=== PATIENT | female | born 1965 | race Caucasian/White ===

== ENCOUNTER 2017-02-22 06:13 | Emergency (ER) | payer OTHER ==
[2017-02-22 06:22] VITALS: PULSE 55; RESP 18
--- NOTE | 2017-02-22 06:47 | XR ---
EXAM: XR Left Ankle Complete, 3 or More Views CLINICAL HISTORY: Reason: Pain TECHNIQUE: Frontal, lateral and oblique views of the left ankle. COMPARISON: No relevant prior studies available. FINDINGS: No fracture or subluxation. Ankle mortise is intact. Soft tissues are unremarkable. Focal calcification seen at the Achilles tendon insertion on the posterior calcaneus. IMPRESSION: No fracture or subluxation.
--- NOTE | 2017-02-22 06:49 | XR ---
EXAM: XR Left Foot Complete, 3 or More Views CLINICAL HISTORY: Reason: Pain TECHNIQUE: Frontal, lateral and oblique views of the left foot. COMPARISON: No relevant prior studies available. FINDINGS: Bones/joints: Unremarkable. No acute fracture. No dislocation. Soft tissues: Enthesophyte at the Achilles tendon insertion on the posterior calcaneus. No radiopaque foreign body. IMPRESSION: No evidence of fracture.
--- NOTE | 2017-02-22 08:01 | ED ---
General Adult HPI - General Chief complaint: Extremity Injury, Lower Stated complaint: Fall/Ankle and foot injury Time Seen by Provider: 02/22/17 07:19 Source: patient, family, RN notes reviewed, old records reviewed Mode of arrival: ambulatory Limitations: no limitations - History of Present Illness Initial comments: This is a 51-year-old female to the ER with left ankle injury. Left ankle pain. Patient had a trip and fall going downstairs about 4 stairs. She denies any other pain or any other injury.. No blood thinners patient has not had. She has no headache chest pain shortness of breath or abdominal pain, patient states falls. Mechanical in nature, she does complain of left ankle pain and left foot pain. - Related Data Allergies Allergy/AdvReac Type Severity Reaction Status Date / Time codeine Allergy Confusion Verified 02/22/17 06:22 Review of Systems ROS Statement: Those systems with pertinent positive or pertinent negative responses have been documented in the HPI. ROS Other: All systems not noted in ROS Statement are negative. Past Medical History Past Medical History: Eye Disorder History of Any Multi-Drug Resistant Organisms: None Reported Additional Past Surgical History / Comment(s): Left shoulder surgery 2011, compund fracture in left elbow, dental surgery, Past Psychological History: No Psychological Hx Reported Smoking Status: Current every day smoker Past Alcohol Use History: Occasional Past Drug Use History: None Reported General Exam - General Exam Comments Initial Comments: Tenderness to left ankle medially full range of motion Limitations: no limitations General appearance: alert, in no apparent distress Head exam: Present: atraumatic, normocephalic, normal inspection Eye exam: Present: normal appearance, PERRL, EOMI. Absent: scleral icterus, conjunctival injection, periorbital swelling ENT exam: Present: normal exam, mucous membranes moist Neck exam: Present: normal inspection. Absent: tenderness, meningismus, lymphadenopathy Respiratory exam: Present: normal lung sounds bilaterally. Absent: respiratory distress, wheezes, rales, rhonchi, stridor Cardiovascular Exam: Present: regular rate, normal rhythm, normal heart sounds. Absent: systolic murmur, diastolic murmur, rubs, gallop, clicks GI/Abdominal exam: Present: soft, normal bowel sounds. Absent: distended, tenderness, guarding, rebound, rigid Extremities exam: Present: normal inspection, full ROM, normal capillary refill. Absent: tenderness, pedal edema, joint swelling, calf tenderness Back exam: Present: normal inspection Neurological exam: Present: alert, oriented X3, CN II-XII intact Psychiatric exam: Present: normal affect, normal mood Skin exam: Present: warm, dry, intact, normal color. Absent: rash Course Vital Signs 02/22/17 02/22/17 06:17 08:22 Temperature 98.7 F 97.9 F Pulse Rate 55 L 55 L Respiratory 18 18 Rate Blood Pressure 124/69 127/62 O2 Sat by Pulse 99 96 Oximetry Medical Decision Making - Medical Decision Making 51 female to ER for evaluation regarding fall down 4 stairs. Patient complains of left foot and ankle pain. X-rays are negative patient's able to ambulate with mild pain, okay for discharge - Radiology Data Radiology results: report reviewed (Ankle x-ray for x-ray negative for traumatic injury), image reviewed Disposition Clinical Impression: Left ankle sprain Disposition: HOME SELF-CARE Condition: Good Instructions: Ankle Sprain (ED) Referrals: Gilmer Baez MD [Primary Care Provider] - 1-2 days
[2017-02-22 08:24] VITALS: BP 127/62; TEMP 97.9
--- NOTE | 2017-02-24 03:25 | CDI ---
Documentation Clarification OP Dear Cuco CHAVEZ, DO Please do addendum to ED report for HPI , Physical exam and MDM. Thank you, Shila Dove Quality Assurance Nurse If you have any question, Please contact technical delivery manager at [phone] [facility]
== END 2017-02-22 08:21 | disposition home or self-care (01) ==
LOC: EC 06:13
DX: S93.402A Sprain of unspecified ligament of left ankle, initial encounter (principal); Z88.5 Allergy status to narcotic agent; W10.9XXA Fall (on) (from) unspecified stairs and steps, initial encounter; Y92.009 Unspecified place in unspecified non-institutional (private) residence as the place of occurrence of the external cause
CPT/HCPCS: 99283

== ENCOUNTER → 2017-06-23 | Outpatient (CLI) | payer OTHER ==
[2017-06-23 07:20] LABS: Basophils % (A) 1 %; Eosinophils # (A) 0.1 k/uL (0-0.7); Eosinophils % (A) 2 %; HCT 41.8 % (34.0-46.0); HGB 14.2 gm/dL (11.4-16.0); Lymphocytes # (A) 2.4 k/uL (1.0-4.8); Lymphocytes % (A) 44 %; MCH 30.2 pg (25.0-35.0); MCV 88.8 fL (80.0-100.0); Mean Platelet Volume 7.8; Monocytes # (A) 0.5 k/uL (0-1.0); Monocytes % (A) 8 %; Neutrophils # (A) 2.3 k/uL (1.3-7.7); Neutrophils % (A) 44 %; Platelet Count 208 k/uL (150-450); RBC 4.71 m/uL (3.80-5.40); RDW 13.6 % (11.5-15.5); WBC 5.4 k/uL (3.8-10.6)
[2017-06-23 07:46] LABS: ALT 25 U/L (9-52); AST 29 U/L (14-36); Albumin 4.7 g/dL (3.5-5.0); Alkaline Phosphatase 85 U/L (38-126); Anion Gap 12 mmol/L; Blood Urea Nitrogen 19 mg/dL (7-17); Carbon Dioxide 25 mmol/L (22-30); Chloride 105 mmol/L (98-107); Cholesterol 243 mg/dL (<200); Glucose 91 mg/dL (74-99); HDL Cholesterol 60 mg/dL (40-60); LDL Cholesterol,Calculated 165 mg/dL (0-99); Potassium 5.2 mmol/L (3.5-5.1); Sodium 142 mmol/L (137-145); Total Bilirubin 1.1 mg/dL (0.2-1.3); Total Protein 7.3 g/dL (6.3-8.2); Triglycerides 92 mg/dL (<150)
== END ==
LOC: LABWHC1 06:37
PROVIDERS: ATTEND Family Medicine
DX: Z00.00 Encounter for general adult medical examination without abnormal findings (principal)
CPT/HCPCS: 36415; 80053; 80061; 82306; 84443; 85025

== ENCOUNTER → 2017-11-17 | Outpatient (CLI) | payer OTHER ==
--- NOTE | 2017-11-17 09:36 | MM ---
Reason for exam: additional evaluation requested from abnormal screening. Last mammogram was performed less than 1 month ago. History: Patient is postmenopausal. Family history of premenopausal breast cancer in aunt at age 43. Took hormonal contraceptives for 9 years beginning at age 20. Physical Findings: Nurse Summary: 1cm nodule in the right breast at 12 o'clock (nurse yessica). MG 3D Work Up W/Cad RT Spot compression CC, spot compression MLO, and LM view(s) were taken of the right breast. Prior study comparison: November 06, 2017, bilateral MG 3d screening mammo w/cad. July 31, 2008, bilateral digital screening mammogram. There are scattered fibroglandular densities. There is no discrete abnormality. These results were verbally communicated with the patient and result sheet given to the patient on 11/17/17. ASSESSMENT: Incomplete: need additional imaging evaluation, BI-RAD 0 RECOMMENDATION: Ultrasound of the right breast.
--- NOTE | 2017-11-17 09:37 | USB ---
Reason for exam: additional evaluation requested from abnormal screening. History: Patient is postmenopausal. Family history of premenopausal breast cancer in aunt at age 43. Took hormonal contraceptives for 9 years beginning at age 20. US Breast Workup Limited RT Technologist: Ivelisse Boland RT (R)(M) Right limited breast ultrasound including focal area of concern, retroareolar and axilla demonstrates duct ectasia at posterior nipple. These results were verbally communicated with the patient and result sheet given to the patient on 11/17/17. ASSESSMENT: Negative, BI-RAD 1 RECOMMENDATION: Return to routine screening mammogram schedule for both breasts.
== END ==
LOC: RADMAMWWP 07:37
PROVIDERS: ATTEND Family Medicine
DX: R92.8 Other abnormal and inconclusive findings on diagnostic imaging of breast (principal)
CPT/HCPCS: 77061; 77065

== ENCOUNTER → 2017-11-23 | Outpatient (CLI) | payer OTHER ==
--- NOTE | 2017-11-23 18:24 | XR ---
EXAMINATION TYPE: XR shoulder complete RT DATE OF EXAM: 11/23/2017 COMPARISON: NONE HISTORY: Fell from a ladder. Shoulder pain TECHNIQUE: 3 views FINDINGS: I see no fracture nor dislocation. Glenohumeral joint is anatomic. Soft tissues appear norm al. There are no pathologic calcifications. IMPRESSION: Normal right shoulder.
--- NOTE | 2017-11-23 18:25 | XR ---
EXAMINATION TYPE: XR scapula RT DATE OF EXAM: 11/23/2017 COMPARISON: NONE HISTORY: Fall. Pain. TECHNIQUE: 2 views FINDINGS: There is no fracture nor dislocation. Scapula appears intact. Soft tissues appear normal. IMPRESSION: Normal right scapula.
--- NOTE | 2017-11-23 18:26 | XR ---
EXAMINATION TYPE: XR chest 2V DATE OF EXAM: 11/23/2017 COMPARISON: NONE HISTORY: Fall. Pain. TECHNIQUE: Frontal and lateral views of the chest are obtained. FINDINGS: Heart and mediastinum are normal. Lungs are clear. Diaphragm is normal. Bony thorax appear s normal. IMPRESSION: Normal chest.
--- NOTE | 2017-11-23 18:27 | XR ---
EXAMINATION TYPE: XR ribs LT DATE OF EXAM: 11/23/2017 COMPARISON: NONE HISTORY: Fall. Pain. TECHNIQUE: 4 views FINDINGS: I see no pleural effusion or pneumothorax. Left lung is clear of infiltrate. Left ribs appe ar intact. IMPRESSION: No rib fracture seen.
== END | disposition home or self-care (01) ==
LOC: RADXRMAIN 17:37
PROVIDERS: ATTEND Emergency Medicine
DX: M25.511 Pain in right shoulder (principal); R52 Pain, unspecified
CPT/HCPCS: 71046

== ENCOUNTER 2018-02-24 21:09 | Emergency (ER) | payer OTHER ==
[2018-02-24 22:01] VITALS: BP 131/80; PULSE 72; RESP 16; TEMP 97.9
--- NOTE | 2018-02-24 22:25 | ED ---
Lower Extremity Injury HPI - General Chief Complaint: Extremity Injury, Lower Stated Complaint: rt dislocated toe Time Seen by Provider: 02/24/18 22:04 Source: patient, RN notes reviewed Mode of arrival: ambulatory Limitations: no limitations - History of Present Illness Initial Comments: 52-year-old female presents emergency Department chief complaint of right foot fifth toe injury. Patient reportedly stubbed her toe on electrical plug. Patient states that is angulated and believes it's dislocated. Patient had no prior injury to that toe. - Related Data Allergies Allergy/AdvReac Type Severity Reaction Status Date / Time codeine Allergy Confusion Verified 02/22/17 06:22 Review of Systems ROS Statement: Those systems with pertinent positive or pertinent negative responses have been documented in the HPI. ROS Other: All systems not noted in ROS Statement are negative. Past Medical History Past Medical History: Eye Disorder History of Any Multi-Drug Resistant Organisms: None Reported Additional Past Surgical History / Comment(s): Left shoulder surgery 2011, compund fracture in left elbow, dental surgery, Past Psychological History: No Psychological Hx Reported Smoking Status: Current every day smoker Past Alcohol Use History: Occasional Past Drug Use History: None Reported General Exam Limitations: no limitations General appearance: alert, in no apparent distress Head exam: Present: atraumatic, normocephalic, normal inspection Respiratory exam: Present: normal lung sounds bilaterally. Absent: respiratory distress, wheezes, rales, rhonchi, stridor Cardiovascular Exam: Present: regular rate, normal rhythm, normal heart sounds. Absent: systolic murmur, diastolic murmur, rubs, gallop, clicks Extremities exam: Present: other (Right foot fifth digit there is an angulation noted to the lateral aspect, neurovascularly intact no pain proximal to the digit) Course Vital Signs 02/24/18 21:56 Temperature 97.9 F Pulse Rate 72 Respiratory 16 Rate Blood Pressure 131/80 O2 Sat by Pulse 100 Oximetry Procedures - Procedures Initial comment: Right foot fifth digit fracture with displacement, this was reduced with traction with no local anesthetic. Patient tolerated well no compilations. Medical Decision Making - Medical Decision Making 52-year-old female presented for foot injury. Patient noted to have to fracture , this was reduced, was taped to the fourth digit and will follow-up with orthopedics as needed. Disposition Clinical Impression: Toe fracture, right Disposition: HOME SELF-CARE Condition: Stable Instructions: Toe Fracture (ED) Additional Instructions: Please return to the Emergency Department if symptoms worsen or any other concerns. Is patient prescribed a controlled substance at d/c from ED?: No Referrals: Gilmer Baez MD [Primary Care Provider] - 1-2 days Time of Disposition: 22:25
--- NOTE | 2018-02-24 22:32 | XR ---
EXAMINATION TYPE: XR toes RT DATE OF EXAM: 02/24/2018 COMPARISON: None HISTORY: Little toe injury TECHNIQUE: 3 views FINDINGS: There is oblique fracture of the distal shaft of the proximal phalanx of the little toe rig ht foot. There is some medial angulation at the fracture site. There is no dislocation. There is valg us deformity of the toe. IMPRESSION: Angulated fracture of the proximal phalanx little toe right foot.
== END 2018-02-24 22:35 | disposition home or self-care (01) ==
LOC: EC 21:09
DX: S92.511A Displaced fracture of proximal phalanx of right lesser toe(s), initial encounter for closed fracture (principal); F17.200 Nicotine dependence, unspecified, uncomplicated; Z88.5 Allergy status to narcotic agent; W22.8XXA Striking against or struck by other objects, initial encounter
CPT/HCPCS: 28515; 99283

== ENCOUNTER → 2018-07-29 | Outpatient (CLI) | payer OTHER ==
[2018-07-29 08:43] LABS: Basophils # (A) 0.1 k/uL (0-0.2); Basophils % (A) 1 %; Eosinophils # (A) 0.2 k/uL (0-0.7); Eosinophils % (A) 4 %; HCT 43.7 % (34.0-46.0); HGB 14.1 gm/dL (11.4-16.0); Lymphocytes # (A) 2.1 k/uL (1.0-4.8); Lymphocytes % (A) 46 %; MCH 28.9 pg (25.0-35.0); MCHC 32.2 g/dL (31.0-37.0); MCV 89.8 fL (80.0-100.0); Mean Platelet Volume 7.9; Monocytes # (A) 0.3 k/uL (0-1.0); Monocytes % (A) 7 %; Neutrophils # (A) 1.8 k/uL (1.3-7.7); Neutrophils % (A) 40 %; Platelet Count 214 k/uL (150-450); RBC 4.87 m/uL (3.80-5.40); RDW 13.6 % (11.5-15.5); WBC 4.5 k/uL (3.8-10.6)
[2018-07-29 16:34] LABS: Albumin 4.9 g/dL (3.80-4.90); Albumin/Globulin Ratio 2.33 (1.60-3.17); Anion Gap 8.5 mmol/L (4.00-12.00); Calcium 10.2 mg/dL (8.7-10.3); Carbon Dioxide 26.5 mmol/L (21.6-31.8); Globulin 2.1 g/dL (1.6-3.3); LDL Cholesterol,Calculated 170.2 mg/dL (0.0-131.0); Potassium 5.2 mmol/L (3.5-5.5); Total Bilirubin 0.8 mg/dL (0.3-1.2); VLDL Calculation 12.8 mg/dL (5.00-40.00)
[2018-07-29 17:36] LABS: Hemoglobin A1C 5.5 % (4.0-6.0)
== END | disposition home or self-care (01) ==
LOC: LABWHC1 07:57
PROVIDERS: ATTEND Family Medicine
DX: Z00.00 Encounter for general adult medical examination without abnormal findings (principal); Z77.011 Contact with and (suspected) exposure to lead
CPT/HCPCS: 36415; 80053; 80061; 83036; 83655; 84443; 85025

== ENCOUNTER → 2019-12-28 | Outpatient (CLI) | payer OTHER ==
--- NOTE | 2019-12-30 12:37 | MM ---
Reason for exam: screening (asymptomatic). Last mammogram was performed 2 years and 1 month ago. History: Patient is postmenopausal. Family history of premenopausal breast cancer in aunt at age 43. Took hormonal contraceptives for 9 years beginning at age 20. Physical Findings: A clinical breast exam by your physician is recommended on an annual basis and results should be correlated with mammographic findings. MG 3D Screening Mammo W/Cad Bilateral CC and MLO view(s) were taken. Prior study comparison: November 17, 2017, right breast MG 3d work up w/cad RT. November 06, 2017, bilateral MG 3d screening mammo w/cad. The breast tissue is heterogeneously dense. This may lower the sensitivity of mammography. Benign appearing bilateral calcifications. No significant changes when compared with prior studies. ASSESSMENT: Benign, BI-RAD 2 RECOMMENDATION: Routine screening mammogram of both breasts in 1 year.
== END | disposition home or self-care (01) ==
LOC: RADMAMWWP 07:08
PROVIDERS: ATTEND Family Medicine
DX: Z12.31 Encounter for screening mammogram for malignant neoplasm of breast (principal)
CPT/HCPCS: 77063; 77067

== ENCOUNTER → 2020-07-19 | Outpatient (CLI) | payer OTHER ==
--- NOTE | 2020-07-20 05:25 | MR ---
EXAMINATION TYPE: MR shoulder RT wo con DATE OF EXAM: 07/19/2020 COMPARISON: None HISTORY: Right shoulder pain. Hx of surgery 2018. Pain has returned. Multiplanar multiecho imaging of the right shoulder was performed without contrast. There is some spurring and fluid at the AC joint. There is increased signal in the supraspinatus tend on over the humeral head. There is full-thickness vertical defect. There is no retraction of the tend on. The glenoid alyssa appear intact. The biceps tendon is intact. The subscapularis tendon is intact. The re is no evidence of a fracture. There is mild narrowing of the shoulder joint space. 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 Spurring with cystic changes at the AC joint w ithout significant subacromial impingement. Full-thickness vertical 7 mm tear through the supraspinatus tendon. No retraction seen of the tendon.
== END | disposition home or self-care (01) ==
LOC: RADMRIMAIN 15:48
PROVIDERS: ATTEND Orthopaedic Surgery Sports Medicine
DX: M75.111 Incomplete rotator cuff tear or rupture of right shoulder, not specified as traumatic (principal); M19.011 Primary osteoarthritis, right shoulder; M77.8 Other enthesopathies, not elsewhere classified

== ENCOUNTER → 2021-05-02 | Outpatient (CLI) | payer OTHER ==
[2021-05-02 15:05] LABS: Basophils # (A) 0.03 X 10*3/uL (0.00-0.10); Basophils % (A) 0.5 %; Eosinophils % (A) 1.8 %; HCT 45.6 % (37.2-46.3); HGB 14.6 g/dL (12.0-15.0); Immature Grans, Automated 0.4 %; Lymphocytes # (A) 2.31 X 10*3/uL (0.90-5.00); Lymphocytes % (A) 42.2 %; MCH 28.7 pg (27.0-32.0); MCV 89.8 fL (80.0-97.0); Mean Platelet Volume 12.3 fL (9.5-12.2); Monocytes # (A) 0.47 X 10*3/uL (0.20-1.00); Monocytes % (A) 8.6 %; NRBC Per 100 WBC 0 /100 WBCS (0.0-0.0); Neutrophils # (A) 2.55 X 10*3/uL (1.80-7.70); Neutrophils % (A) 46.5 %; Platelet Count 207 X 10*3/uL (140-440); RBC 5.08 X 10*6/uL (4.10-5.20); RDW 14.1 % (11.5-14.5); WBC 5.48 X 10*3/uL (4.50-10.00)
[2021-05-02 15:22] LABS: ALT 31 U/L (8-44); AST 24 U/L (13-35); African American GFR (CKD) 96.9 (60.0-200.0); Albumin/Globulin Ratio 1.92 (1.60-3.17); Alkaline Phosphatase 109 U/L (41-126); BUN/Creat Ratio 18.88 Ratio (12.00-20.00); Blood Urea Nitrogen 15.1 mg/dL (9.0-27.0); Carbon Dioxide 23.5 mmol/L (20.0-27.5); Chloride 102 mmol/L (96-109); Chol/HDL Ratio 4.19 Ratio; Globulin 2.6 g/dL (1.6-3.3); Glucose 93 mg/dL (70-110); LDL Cholesterol,Calculated 173.9 mg/dL (0.0-131.0); Non-African American GFR(CKD) 83.6 (60.0-200.0); Potassium 3.9 mmol/L (3.5-5.5); Sodium 138 mmol/L (135-145); Total Protein 7.6 g/dL (6.2-8.2)
== END | disposition home or self-care (01) ==
LOC: LABWHC1 08:11
PROVIDERS: ATTEND Family Medicine
DX: Z00.00 Encounter for general adult medical examination without abnormal findings (principal)
CPT/HCPCS: 36415; 80053; 80061; 83036; 84443; 85025

== ENCOUNTER → 2021-05-07 | Outpatient (CLI) | payer OTHER ==
--- NOTE | 2021-05-08 10:53 | MM ---
Reason for exam: screening (asymptomatic). Last mammogram was performed 1 year and 4 months ago. History: Patient is postmenopausal. Family history of premenopausal breast cancer in aunt at age 43. Took hormonal contraceptives for 9 years beginning at age 20. Physical Findings: A clinical breast exam by your physician is recommended on an annual basis and results should be correlated with mammographic findings. MG 3D Screening Mammo W/Cad Bilateral CC and MLO view(s) were taken. Prior study comparison: December 28, 2019, bilateral MG 3d screening mammo w/cad. November 17, 2017, right breast MG 3d work up w/cad RT. The breast tissue is heterogeneously dense. This may lower the sensitivity of mammography. There is no discrete abnormality. No significant changes when compared with prior studies. ASSESSMENT: Negative, BI-RAD 1 RECOMMENDATION: Routine screening mammogram of both breasts in 1 year.
== END | disposition home or self-care (01) ==
LOC: RADMAMWWP 14:39
PROVIDERS: ATTEND Family Medicine
DX: Z12.31 Encounter for screening mammogram for malignant neoplasm of breast (principal); Z78.0 Asymptomatic menopausal state; Z80.3 Family history of malignant neoplasm of breast
CPT/HCPCS: 77063; 77067

== ENCOUNTER → 2021-06-20 | Outpatient (CLI) | payer OTHER ==
--- NOTE | 2021-06-20 10:06 | MR ---
EXAMINATION TYPE: MR shoulder LT wo con DATE OF EXAM: 06/20/2021 COMPARISON: None HISTORY: Jaspreet shoulder pain, lack of use in hands, tingling fingers, hx of surgery for rct TECHNIQUE: Multiplanar, multisequence imaging of the left shoulder is performed without contrast. FINDINGS: There hypertrophic change and severe narrowing AC joint marrow signal changes. This does re sult in mass effect upon the supraspinatus tendon and muscle with a small spur extending inferiorly. Correlate for impingement. There is diffuse abnormal signal involving the distal margin of the supraspinatus tendon extending a length of 1.8 cm to the level of the insertion with both intrasubstance and undersurface signal alter ation. No definite through thickness tear. Findings felt to be compatible with significant tendinosis and partial intrasubstance tear. No traction. The anterior fibers near the insertion of the infraspinatus tendon also demonstrates increased signal suggestion of partial tear and tendinosis extending the transverse diameter of approximately 5 mm. Subscapularis tendon intact. Of bony labrum are grossly intact. Inferior glenohumeral ligament appears intact and no evidence of s izable joint effusion. Scapular notches normal appearance. Biceps tendon well situated in the bicipit al groove. IMPRESSION: 1. Diffuse tendinopathy distal margin supraspinatus tendon compatible with tendinosis and partial int rasubstance tear. No retraction. 2. There is a 5 mm anterior fibers partial tear insertion infraspinatus. 3. Impingement secondary to AC joint arthropathy.
--- NOTE | 2021-06-20 10:51 | MR ---
EXAMINATION TYPE: MR shoulder RT wo con DATE OF EXAM: 06/20/2021 COMPARISON: 07/19/2020 HISTORY: Jaspreet shoulder pain, lack of use in hands, tingling fingers, hx of surgery for rct TECHNIQUE: Multiplanar, multisequence imaging of the right shoulder is performed without contrast. FINDINGS: There is some fluid signal within the AC joint with hypertrophic changes and narrowing the joint space compatible with AC joint arthropathy resulting in mass effect and impingement upon the ro tator cuff. Ligamentous injury of the AC joint in the differential diagnosis And there remains diffuse abnormal signal involving the body and undersurface of the distal margin of the supraspinatus tendon extending to the insertion compatible severe tendinopathy. This extends karlene roximately 80% diameter of the tendon compatible with near complete partial tear. There does appear t o be a small focal area of through thickness partial tear without retraction. Finding is similar to t he prior exam. There also is a 10 mm area of abnormal signal at the insertion of the infraspinatus tendon representi ng portions of the conjoined tendon compatible with a partial through thickness tear. There is no ret raction. Subscapularis tendon intact. Bony labrum grossly intact given nonarthrogram technique. Inferior glenohumeral ligament intact. No s izable joint effusion. Bicipital tendon well situated within the bicipital groove. Scapular notches normal appearance. React ngozi marrow signal seen within the humeral IMPRESSION: 1. Diffuse tendinopathy of the distal 2 cm of the anterior fibers of the infraspinatus and ear fibers of the supraspinatus tendon extending to the conjoined portion of the tendon with partial through th ickness tear measuring 1 cm. No retraction. 2. Severe AC joint arthropathy with mild impingement.
== END | disposition home or self-care (01) ==
LOC: RADMRIMAIN 08:02
PROVIDERS: ATTEND Orthopaedic Surgery Sports Medicine
DX: M75.112 Incomplete rotator cuff tear or rupture of left shoulder, not specified as traumatic (principal); M75.111 Incomplete rotator cuff tear or rupture of right shoulder, not specified as traumatic; M12.811 Other specific arthropathies, not elsewhere classified, right shoulder; M12.812 Other specific arthropathies, not elsewhere classified, left shoulder

== ENCOUNTER → 2022-02-27 | Outpatient (CLI) | payer OTHER ==
--- NOTE | 2022-02-28 05:19 | MR ---
EXAMINATION TYPE: MR knee RT wo con DATE OF EXAM: 02/27/2022 COMPARISON: None HISTORY: Right knee pain x 8 months, no trauma. Multiplanar multiecho imaging of the right knee performed with no contrast is a small popliteal cyst is minute joint effusion. The anterior and posterior cruciate ligaments are medial and lateral menisc i appear intact patella is intact. Collateral ligaments are evidence of a fracture IMPRESSION: There is small Joint effusion and popliteal cyst. No evidence of meniscal tear or ligamentous tear.
== END | disposition home or self-care (01) ==
LOC: RADMRIMAIN 13:09
PROVIDERS: ATTEND Orthopaedic Surgery
DX: M25.461 Effusion, right knee (principal); M71.21 Synovial cyst of popliteal space [Baker], right knee

== ENCOUNTER → 2023-05-11 | Outpatient (CLI) | payer BC ==
[2023-05-11 11:03] LABS: Basophils # (A) 0.04 X 10*3/uL (0.00-0.10); Basophils % (A) 0.7 %; Eosinophils # (A) 0.09 X 10*3/uL (0.04-0.35); Eosinophils % (A) 1.6 %; HCT 42.2 % (37.2-46.3); Lymphocytes # (A) 2.79 X 10*3/uL (0.90-5.00); Lymphocytes % (A) 48.1 %; MCH 29.8 pg (27.0-32.0); MCHC 33.2 g/dL (32.0-37.0); MCV 89.8 FL (80.0-97.0); Mean Platelet Volume 12.6 FL (9.5-12.2); Monocytes % (A) 8.6 %; NRBC Per 100 WBC 0 X 10*3/uL (0.00-0.01); Neutrophils # (A) 2.37 X 10*3/uL (1.80-7.70); Neutrophils % (A) 40.8 %; Platelet Count 195 X 10*3/uL (140-440); RDW 13.3 % (11.5-14.5)
[2023-05-11 11:22] LABS: ALT 33 U/L (8-44); AST 26 U/L (13-35); Albumin 5.1 g/dL (3.8-4.9); Albumin/Globulin Ratio 2.12 Ratio (1.60-3.17); Alkaline Phosphatase 123 U/L (41-126); BUN/Creat Ratio 16.67 Ratio (12.00-20.00); Calcium 10.4 mg/dL (8.7-10.3); Carbon Dioxide 24.8 mmol/L (21.6-31.8); Chloride 106 mmol/L (96-109); Chol/HDL Ratio 2.75 Ratio; Creatine Kinase 156 U/L (26-186); Globulin 2.4 g/dL (1.6-3.3); Glucose 96 mg/dL (70-110); LDL Cholesterol,Calculated 94.8 mg/dL (0.0-131.0); Potassium 4.3 mmol/L (3.5-5.5); Sodium 142 mmol/L (135-145); Total Bilirubin 0.5 mg/dL (0.3-1.2); Total Protein 7.5 g/dL (6.2-8.2); VLDL Calculation 14.12 mg/dL (5.00-40.00)
--- NOTE | 2023-05-13 07:43 | MM ---
Reason for Exam: Screening (asymptomatic). Last screening mammogram was performed 12 month(s) ago. Patient History: Menarche at age 15. First Full-Term at age 21. Postmenopausal. Hormonal Contraceptives for 9 years from age 20 until age 31. Maternal aunt had breast cancer, age 43. Risk Values: Stacey 5 year model risk: 0.9%. NCI Lifetime model risk: 5.9%. Prior Study Comparison: 12/28/2019 Bilateral Screening Mammogram, [facility]. 05/07/2021 Bilateral Screening Mammogram, [facility]. 05/08/2022 Bilateral MG 3D screening mammo w/cad, [facility]. Tissue Density: There are scattered areas of fibroglandular density. Findings: Analyzed By CAD. There is no suspicious group of microcalcifications or new suspicious mass in either breast. Overall Assessment: Negative, BI-RAD 1 Management: Screening Mammogram of both breasts in 1 year. . Patient should continue monthly self-breast exams. A clinical breast exam by your physician is recommended on an annual basis. This exam should not preclude additional follow-up of suspicious palpable abnormalities. Note on Stacey scores and lifetime risk: 1. A Stacey score greater than 3% is considered moderate risk. If this is the case, consider specialist referral to assess eligibility for a risk reducing agent. 2. If overall lifetime risk for the development of breast cancer is 20% or higher, the patient may qualify for future screening with alternating mammogram and breast MRI. Electronically signed and approved by: Eduin Rucker M.D. Radiologist
== END | disposition home or self-care (01) ==
LOC: RADMAMWWP 07:13
PROVIDERS: ATTEND Family Medicine
DX: Z12.31 Encounter for screening mammogram for malignant neoplasm of breast (principal); Z78.0 Asymptomatic menopausal state; Z80.3 Family history of malignant neoplasm of breast
CPT/HCPCS: 36415; 77063; 77067; 80053; 80061; 82550; 83036; 84443; 85025

== ENCOUNTER → 2024-05-23 | Outpatient (CLI) | payer BC ==
--- NOTE | 2024-05-23 07:50 | MM ---
Reason for Exam: Screening (asymptomatic). Last screening mammogram was performed 12 month(s) ago. Patient History: Menarche at age 15. First Full-Term at age 21. Postmenopausal. Hormonal Contraceptives for 9 years from age 20 until age 31. Maternal aunt had breast cancer, age 43. Risk Values: Stacey 5 year model risk: 0.9%. NCI Lifetime model risk: 5.7%. Prior Study Comparison: 05/07/2021 Bilateral Screening Mammogram, [facility]. 05/08/2022 Bilateral MG 3D screening mammo w/cad, [facility]. 05/11/2023 Bilateral MG 3D screening mammo w/cad, [facility]. Tissue Density: The breasts are heterogeneously dense, which may obscure small masses. Findings: Analyzed By CAD. There is no suspicious group of microcalcifications or new suspicious mass in either breast. Overall Assessment: Benign, BI-RAD 2 Management: Screening Mammogram of both breasts in 1 year. . Patient should continue monthly self-breast exams. A clinical breast exam by your physician is recommended on an annual basis. This exam should not preclude additional follow-up of suspicious palpable abnormalities. Note on Stacey scores and lifetime risk: 1. A Stacey score greater than 3% is considered moderate risk. If this is the case, consider specialist referral to assess eligibility for a risk reducing agent. 2. If overall lifetime risk for the development of breast cancer is 20% or higher, the patient may qualify for future screening with alternating mammogram and breast MRI. [facility], , 05/23/2024 7:47 AM. Electronically signed and approved by: Gilmer Dangelo M.D. Radiologis
== END | disposition home or self-care (01) ==
LOC: RADMAMWWP 06:53
PROVIDERS: ATTEND Family Medicine
DX: Z12.31 Encounter for screening mammogram for malignant neoplasm of breast (principal); R92.333 Mammographic heterogeneous density, bilateral breasts; Z78.0 Asymptomatic menopausal state; Z80.3 Family history of malignant neoplasm of breast; Z92.0 Personal history of contraception
CPT/HCPCS: 77063; 77067